=== PATIENT | male | born 1935 | race Hispanic/Latino ===

== ENCOUNTER 2018-09-14 18:59 | Inpatient (IN) | payer OTHER, MEDICARE ==
[~2018-09-14] VITALS: Ht 162.6 cm; Wt 56.0 kg
[2018-09-14 19:50] LABS: BASOPHILS % (AUTO) 0.1 % (0.0-5.0); HEMATOCRIT 34.9 % (42-54); LYMPHOCYTES % (AUTO) 2.7 % (21.0-51.0); MEAN CORPUSCULAR HEMOGLOBIN 33.5 pg (27.0-33.0); MEAN CORPUSCULAR HGB CONC 35.2 g/dL (32.0-36.0); MEAN CORPUSCULAR VOLUME 95.3 fL (79-99); MONOCYTES % (AUTO) 9.6 % (3.0-13.0); NEUTROPHILS % (AUTO) 87.6 % (40.0-77.0); PLATELET COUNT (AUTO) 185 K/uL (130-400); RED BLOOD CELL COUNT(AUTO) 3.66 MIL/uL (4.50-6.20); WHITE BLOOD COUNT (AUTO) 14.2 K/uL (4.8-10.8)
[2018-09-14 20:14] LABS: CREATININE 2.1 mg/dL (0.5-1.5); POTASSIUM 4.3 mmol/L (3.5-5.1)
[2018-09-14 20:19] LABS: ALBUMIN 3.9 g/dL (3.5-5.0); BILIRUBIN,TOTAL 1.1 mg/dL (0.2-1.0); INR 1.03 (0.85-1.15); PARTIAL THROMBOPLASTIN TIME 34.1 SEC (26.3-35.5); PROTHROMBIN TIME 10.8 SEC (9.6-11.6); TOTAL PROTEIN, SERUM 7.7 g/dL (6.0-8.3)
[2018-09-14] MEDS ORDERED: ASPIRIN 81MG TAB.CHEW ONE (21:09)
[2018-09-14] MEDS ORDERED: NITROGLYCERIN 1GM/1 INCH PACKET TD ONE (21:09)
[2018-09-14] MEDS ORDERED: HEPARIN SODIUM 5000UNIT/ML 1ML VIAL ONE (22:06)
[2018-09-14] MEDS ORDERED: HEPARIN 25000 UNITS/250 ML D5W 250 ML IV ONE (22:06)
[2018-09-14 22:25] LABS: APPEARANCE,URINE Clear (CLEAR); BILIRUBIN,URINE Negative (NEGATIVE); COLOR,URINE Yellow (YELLOW); GLUCOSE, URINE (UA) TRACE mg/dL (NEGATIVE); KETONES,URINE Trace mg/dL (NEGATIVE); LEUKOCYTE ESTERASE ,URINE Negative (NEGATIVE); NITRATE,URINE Negative (NEGATIVE); OCCULT BLOOD,URINE Negative (NEGATIVE); PH,URINE 5.5 (5.0-8.0); PROTEIN,URINE POS 2+ mg/dL (NEGATIVE)
--- NOTE | 2018-09-14 22:47 | NUR ---
Received report from ER nurse Matthieu,pt. s/p fall from home admitted for Nonstemi,intial troponin was elevated 1.43 no chest pain and Dr. Cordova was consulted in ER as per report.Pt. is on heparin drip.V/S were atable as per report.
[2018-09-14 23:07] LABS: RBC,URINE 0-1 /HPF (0-1); WBC,URINE 0-1 /HPF (0-1)
[2018-09-14 23:08] LABS: BACTERIA,URINE Few /HPF (None Seen); SQUAMOUS EPITHELIAL CELL,UR 0-2 /HPF (0-2)
--- NOTE | 2018-09-14 23:10 | NUR ---
Received pt. via stretcher from ER on heparin drip infusing @13ml/hr to left forearm,pt. was accompanied by staff and family.Pt. is forgetful and pleasantly confused.Pt. deneis chestpain or any discomfort at this time.
[2018-09-14] MEDS ORDERED: NITROGLYCERIN 0.4 MG SL TAB SL PRN (23:30)
[2018-09-14] MEDS ORDERED: GLUCAGON 1MG KIT 1 MG ML IM PRN (23:30)
[2018-09-14] MEDS ORDERED: ONDANSETRON HCL 4 MG/2 ML VIAL IVP PRN (23:30)
[2018-09-14] MEDS ORDERED: DEXTROSE 50%-WATER 50 ML DISP.SYRIN IV PRN (23:30)
[2018-09-14] MEDS ORDERED: ACETAMINOPHEN 325 MG TAB PO PRN ×2 (23:30)
[2018-09-14 23:44] VITALS: BP 128/71
[2018-09-14] MEDS ORDERED: HEPARIN 25,000 UNITS/250 ML IV PRN (23:45)
[2018-09-15] MEDS ORDERED: ACET-2521 PO (00:26)
[2018-09-15] MEDS ORDERED: GLIP1TAB5 PO (00:26)
[2018-09-15] MEDS ORDERED: CALC-190 PO (00:26)
[2018-09-15] MEDS ORDERED: AEC81 PO (00:26)
[2018-09-15] MEDS ORDERED: MVIT PO (00:26)
[2018-09-15] MEDS ORDERED: EZET10TA26 PO (00:26)
[2018-09-15] MEDS ORDERED: PANT40TA25 PO (00:26)
[2018-09-15] MEDS ORDERED: CLOP75TA32 PO (00:26)
[2018-09-15] MEDS ORDERED: CYAN100010 PO (00:26)
[2018-09-15] MEDS ORDERED: METO50TA18 PO (00:26)
[2018-09-15] MEDS ORDERED: SIMV40TA59 PO (00:26)
[2018-09-15] MEDS ORDERED: LOSA1TAB42 PO (00:26)
[2018-09-15] MEDS ORDERED: TORS10TA18 PO (00:26)
[2018-09-15 03:48] VITALS: BP 142/78
[2018-09-15 04:31] LABS: HEMATOCRIT 31.3 % (42-54); MEAN CORPUSCULAR HEMOGLOBIN 33.1 pg (27.0-33.0); MEAN CORPUSCULAR HGB CONC 35.1 g/dL (32.0-36.0); MEAN CORPUSCULAR VOLUME 94.1 fL (79-99); PLATELET COUNT (AUTO) 184 K/uL (130-400); RED BLOOD CELL COUNT(AUTO) 3.32 MIL/uL (4.50-6.20); RED CELL DISTRIBUTION WIDTH 13.1 % (11.0-15.5); WHITE BLOOD COUNT (AUTO) 14.8 K/uL (4.8-10.8)
[2018-09-15 04:42] LABS: BAND NEUTROPHILS % (MANUAL) 5 % (0-2); LYMPHOCYTES % (MANUAL) 4 % (22-44); MAN.DIFF COMMENT-IMPRESSION MANUAL DIFFERENTIAL; MONOCYTES % (MANUAL) 8 % (2-9); SEGMENTED NEUTROPHILS % 83 % (40-70)
[2018-09-15 04:43] LABS: PLATELET MORPHOLOGY COMMENT SLIGHTLY DECREASED
[2018-09-15 04:50] LABS: INR 1.13 (0.85-1.15); PROTHROMBIN TIME 11.8 SEC (9.6-11.6)
[2018-09-15 05:21] LABS: ALBUMIN 3.3 g/dL (3.5-5.0); BILIRUBIN,TOTAL 1.1 mg/dL (0.2-1.0); CREATININE 1.9 mg/dL (0.5-1.5); MAGNESIUM 1.9 mg/dL (1.80-2.40); PHOSPHORUS 3.2 mg/dL (2.5-4.9); POTASSIUM 3.6 mmol/L (3.5-5.1); TOTAL PROTEIN, SERUM 6.7 g/dL (6.0-8.3)
[2018-09-15 05:27] LABS: TROPONIN I 1.04 ng/mL (0.00-0.06)
[2018-09-15 05:52] LABS: PARTIAL THROMBOPLASTIN TIME > 120.0 SEC (26.3-35.5)
[2018-09-15] MEDS: INSULIN R PO SS1 SQ SCH ×4 (06:31→18:00)
[2018-09-15 07:47] VITALS: BP 142/74
[2018-09-15] MEDS: ASPIRIN 81MG TAB.CHEW PO SCH (08:55)
[2018-09-15] MEDS ORDERED: PANTOPRAZOLE 40 MG/VIAL IVP SCH (09:00)
[2018-09-15 11:01] LABS: TROPONIN I 0.7 ng/mL (0.00-0.06)
[2018-09-15 11:53] VITALS: BP 128/65
--- NOTE | 2018-09-15 11:56 | NUR ---
Pal WRIGHT PA-C, IN ROOM WITH PT. FOR CONSULT. PT.'S DAUGHTER AT BEDSIDE.
--- NOTE | 2018-09-15 12:05 | NUR ---
TO CT SCAN VIA BED ACCOMPANIED BY DANILO MONGE.
--- NOTE | 2018-09-15 12:20 | NUR ---
RETURNED TO ROOM VIA BED, W/O C/O. FAMILY MEMBERS AT BEDSIDE. CALL LIGHT WITHIN REACH.
--- NOTE | 2018-09-15 12:20 | NUR ---
RD Notification Patient NPO at time of screen. RD notification for recent weight loss with good appetite received. Patient PMH CABG, [place], DM; When medically feasible, rec to advance diet as tolerated to goal of 75gm, Heart Healthy diet. RD to monitor PO status. Patient LBM 09/14/18. Patient monitored labs: BUN 39, Cr 1.9, GFR 36, Glu 212, T. Bili 1.1, Alb 3.3. RD to continue to monitor. Please notify RD as nutritional concerns arise. Thank you. Addendum: 09/15/18 at [address] Amended: Links added.
[2018-09-15 16:17] VITALS: BP 134/65
--- NOTE | 2018-09-15 16:35 | NUR ---
NOTIFIED Pal WRIGHT PA-C, RE:REPEAT CT HEAD RESULTS AND PT.'S FAMILY CONCERN RE:NPO STATUS; VERBALIZED UNDERSTANDING AND ORDERS RECEIVED.
--- NOTE | 2018-09-15 17:05 | NUR ---
SITTING UP IN BED, POSITIONED IN HIGH ADAM'S POSITION. ASSISTED WITH DINNER BY FAMILY MEMBERS AT BEDSIDE. PT. DENIES ANY C/O. CALL LIGHT WITHIN REACH.
[2018-09-15 19:29] VITALS: BP 113/69
[2018-09-15] MEDS: METOPROLOL TARTRATE 50 MG TAB PO SCH (20:25)
[2018-09-15] MEDS: SIMVASTATIN 20 MG TABLET PO SCH (20:25)
[2018-09-15] MEDS ORDERED: INSULIN HUMULIN R 100 UNIT/ML 3ML SQ SCH (21:35)
[2018-09-15 23:51] VITALS: BP 136/60
[2018-09-16 03:40] LABS: HEMATOCRIT 30.3 % (42-54); MEAN CORPUSCULAR HEMOGLOBIN 33.3 pg (27.0-33.0); MEAN CORPUSCULAR HGB CONC 34.7 g/dL (32.0-36.0); MEAN CORPUSCULAR VOLUME 95.9 fL (79-99); PLATELET COUNT (AUTO) 162 K/uL (130-400); RED BLOOD CELL COUNT(AUTO) 3.16 MIL/uL (4.50-6.20); RED CELL DISTRIBUTION WIDTH 12.9 % (11.0-15.5); WHITE BLOOD COUNT (AUTO) 11.8 K/uL (4.8-10.8)
[2018-09-16 03:42] LABS: POTASSIUM 3.7 mmol/L (3.5-5.1)
[2018-09-16 03:54] VITALS: BP 147/62
[2018-09-16 04:10] LABS: B-TYPE NATRIURETIC PEPTIDE 218 pg/mL (0-100)
[2018-09-16] MEDS: INSULIN HUMULIN R 100 UNIT/ML 3ML SQ SCH ×4 (05:45→21:00)
--- NOTE | 2018-09-16 06:32 | NUR ---
Pt. is ocassionaly trying to get out of bed but easily redirected,family to bedside.Pt. resting well for the most part of the night,no s/s hypoglycemia.
[2018-09-16 07:00] VITALS: BP 168/82
[2018-09-16] MEDS: CALCIUM 600 + VITAMIN D 400 TABLET PO SCH (08:27)
[2018-09-16] MEDS: ACETAMINOPHEN EXTENDED RELEASE 650 MG TABLET PO SCH (08:28)
[2018-09-16] MEDS: CYANOCOBALAMIN (VITAMIN B-12) 1,000 MCG TABLET PO SCH (08:28)
[2018-09-16] MEDS: EZETIMIBE 10 MG TAB PO SCH (08:28)
[2018-09-16] MEDS: PANTOPRAZOLE SODIUM 40 MG TABLET.DR PO SCH (08:28)
[2018-09-16] MEDS: ASPIRIN 81MG TAB.CHEW PO SCH (08:28)
[2018-09-16] MEDS: ASPIRIN 81 MG EC TAB PO SCH (08:28)
[2018-09-16] MEDS: MULTIVITAMIN TABLET PO SCH (08:28)
[2018-09-16] MEDS: METOPROLOL TARTRATE 50 MG TAB PO SCH (08:29)
[2018-09-16] MEDS: TORSEMIDE 20 MG TAB PO SCH (08:29)
[2018-09-16 11:00] VITALS: BP 141/66
--- NOTE | 2018-09-16 12:00 | NUR ---
DYSPHAGIA EVAL COMPLETED. +S/S OF ASPIRATION WITH THIN LIQUIDS. RECOMMEND REGULAR TEXTURE, NECTAR-THICK LIQUIDS; PILLS WHOLE WITH LIQUIDS. PATIENT INFORMATION: Pt IS AN 83 YEAR OLD MALE REFERRED FOR A BEDSIDE DYSPHAGIA EVALUATION SECONDARY TO COUGHING WITH THIN LIQUIDS. FAMILY AT BEDSIDE AT THE TIME OF THE EVALUATION. Pt COOPERATIVE REQUIRING ASSISTANCE FOR IDENTIFYING INFORMATION. Pt CURRENTLY ADMITTED SECONDARY TO S/P FALL AND NON-STEMI PR. 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 EVALUATION: PT PRESENTS WITH MILD-MODERATE PHARYNGEAL DYSPHAGIA CAUSED BY DELAYED PHARYNGEAL RESPONSE TIME AND DECREASED HYO-LARYNGEAL APPROXIMATION PALPATED DURING THE EVALUATION, RESULTING IN +S/S OF ASPIRATION OF COUGH RESPONSE WITH THIN LIQUIDS (INCONSISTENT). RECOMMENDATION: 1. REGULAR SOLIDS; NECTAR-THICK LIQUIDS; PILLS WHOLE WITH LIQUIDS. 2. COMPENSATORY STRATEGIES; *SEATED AT 90 *SLOW RATE *SMALL BITES AND SIPS *ALTERNATE BITES AND SIPS RISKS AND CONSEQUENCES OF ASPIRATION REVIEWED WITH Pt AND FAMILY, THEY VERBALIZED UNDERSTANDING AND COMPLIANCE WITH RECOMMENDATIONS. G-CODES SWALLOWING: [id number] Addendum: 09/16/18 at 1346 by VERN SANCHEZ [facility] Amended: Links added.
--- NOTE | 2018-09-16 13:50 | NUR ---
DC PLAN VISITED WITH PATIENT AND FAMILY. PATIENT LIVES ALONE. INDEPENDENT ABLE TO PERFORM ADL'S. PATIENT HAS NO DME'S. PROVIDER 4 HOURS A DAY FEELS SAFE TO RETURN HOME. Addendum: 09/16/18 at 1352 by BHARATI FOX RN CM Amended: Links added.
[2018-09-16 16:00] VITALS: BP 146/66
[2018-09-16 19:00] VITALS: BP 146/59
[2018-09-16] MEDS: SIMVASTATIN 20 MG TABLET PO SCH (21:01)
[2018-09-16] MEDS: METOPROLOL TARTRATE 25 MG TAB PO SCH (21:01)
[2018-09-16 23:00] VITALS: BP 142/50
[2018-09-17 03:00] VITALS: BP 131/89
[2018-09-17 05:21] LABS: CREATININE 2.1 mg/dL (0.5-1.5); POTASSIUM 3.1 mmol/L (3.5-5.1)
[2018-09-17 07:00] VITALS: BP 151/70
[2018-09-17] MEDS: INSULIN HUMULIN R 100 UNIT/ML 3ML SQ SCH ×4 (07:03→21:00)
[2018-09-17] MEDS ORDERED: POTASSIUM CHLORIDE 20 MEQ ERTAB PO SCH (08:15)
[2018-09-17] MEDS: ASPIRIN 81 MG EC TAB PO SCH (08:25)
[2018-09-17] MEDS: TORSEMIDE 20 MG TAB PO SCH (08:25)
[2018-09-17] MEDS: EZETIMIBE 10 MG TAB PO SCH (08:25)
[2018-09-17] MEDS: PANTOPRAZOLE SODIUM 40 MG TABLET.DR PO SCH (08:25)
[2018-09-17] MEDS: MULTIVITAMIN TABLET PO SCH (08:25)
[2018-09-17] MEDS: CYANOCOBALAMIN (VITAMIN B-12) 1,000 MCG TABLET PO SCH (08:26)
[2018-09-17] MEDS: CLOPIDOGREL BISULFATE 75 MG TAB PO SCH (08:26)
[2018-09-17] MEDS: ACETAMINOPHEN EXTENDED RELEASE 650 MG TABLET PO SCH (08:26)
[2018-09-17] MEDS: METOPROLOL TARTRATE 25 MG TAB PO SCH ×2 (08:27→21:13)
[2018-09-17] MEDS: CALCIUM 600 + VITAMIN D 400 TABLET PO SCH (08:27)
[2018-09-17] MEDS ORDERED: CLOPIDOGREL BISULFATE 75 MG TAB PO SCH (09:00)
[2018-09-17 11:00] VITALS: BP 158/75
--- NOTE | 2018-09-17 12:01 | NUR ---
SPEECH THERAPY COMPLETED. S: Pt RAISED TO 90 DEGREES IN BED WITH GRANDDAUGHTER AT BEDSIDE. Pt COOPERATIVE. O: Pt CURRENTLY TARGETING SWALLOWING GOALS: *Pt WILL TOLERATE REGULAR, NECTAR-THICK LIQUID DIET: X5 TRIALS WITH NO S/S OF ASPIRATION. *TRIAL OF THIN LIQUIDS X2 WITH THROAT CLEAR PRESENT A: NURSE REPORTS Pt IS TOLERATING CURRENT DIET. GRANDDAUGHTER WAS EDUCATED ON HOW TO REACH NECTAR-THICK LIQUIDS. SHE VERBALIZED UNDERSTANDING AND COMPLIANCE WITH RECOMMENDATIONS. P: RECOMMEND CONTINUED SKILLED SPEECH THERAPY AND CONTINUED DIET OF REGULAR SOLIDS AND NECTAR-THICK LIQUIDS. HARDWARE INSTALLER COORDINATED CARE WITH NURSE RAYMUNDO. Addendum: 09/17/18 at 1205 by VERN SANCHEZ, [facility] Amended: Links added.
--- NOTE | 2018-09-17 13:15 | NUR ---
RD Follow up Patient tolerating 75gm CCD, Heart Healthy diet, NTL with no report of GI distress and PO intake at 100%. Patient LBM 09/16/18. Patient monitored labs: K 3.1, BUN 45, Cr 2.1, GFR 32, Glu 145, Alb 3.3. Patient asked RD for water, however patient with NTL. RD to continue to monitor. Please notify RD as nutritional concerns arise. Thank you. Addendum: 09/17/18 at [address] Amended: Links added.
--- NOTE | 2018-09-17 15:17 | NUR ---
DC PLAN SPOKE TO PATIENT AND FAMILY AT BEDSIDE REGARDS SNF. SAID THEY NEEDED TO TALK TO OTHER DAUGHTER PATO. CALLED PATO NO ANSWER NO CALL BACK. LEFT INFO FOR IN NETWORK SNF. CM WILL CONTINUE TO FOLLOW. SPOKE TO DALTON VILLAGOMEZ SAID PATIENT WILL BE READY FOR DC IN 24 TO 48 HRS. Addendum: 09/17/18 at 1518 by BHARATI FOX RN CM Amended: Links added.
[2018-09-17 16:00] VITALS: BP 155/82
--- NOTE | 2018-09-17 16:59 | NUR ---
SBAR report given to LEAH Triana at 3rd floor. Patient is going to room 307. Family member Christina, daughter notified ([phone]).
[2018-09-17 20:00] VITALS: BP 161/80
[2018-09-17] MEDS: SIMVASTATIN 20 MG TABLET PO SCH (21:13)
[2018-09-18] VITALS (12 sets, daily range): BP systolic 125–174; BP diastolic 59–89
--- NOTE | 2018-09-18 03:01 | NUR ---
fall 219 Patient's bed alarm went off and I the Nurse went to the room as soon as possible but the patient was already on the floor with his buttock with the grandson Dante trying to help him. Grandson Dante said that patient just slid on the floor and that he did not hear the patient hit the floor. Patient and Grandson Dante was educated in the beginning of the shift to not let the patient get up and to call if needed help but in this case the patient nor the family member did not call for help. Batsheva Purvis which is the Nurse Practitioner secondary english teacher for the night was notified about the fall at 0300. She said just to monitor the patient closely. No orders were given. at 224 Director Lm was also notified. Patient is back in bed and no complaints of any pain. Vitals are stable. Will monitor closely
[2018-09-18 05:10] LABS: BASOPHILS % (AUTO) 0.1 % (0.0-5.0); EOSINOPHILS % (AUTO) 0.3 % (0.0-8.0); HEMATOCRIT 30.3 % (42-54); MEAN CORPUSCULAR HEMOGLOBIN 33.3 pg (27.0-33.0); MEAN CORPUSCULAR VOLUME 95.3 fL (79-99); MONOCYTES % (AUTO) 10.1 % (3.0-13.0); NEUTROPHILS % (AUTO) 81.5 % (40.0-77.0); PLATELET COUNT (AUTO) 198 K/uL (130-400); RED BLOOD CELL COUNT(AUTO) 3.18 MIL/uL (4.50-6.20); RED CELL DISTRIBUTION WIDTH 12.6 % (11.0-15.5); WHITE BLOOD COUNT (AUTO) 10.9 K/uL (4.8-10.8)
[2018-09-18 05:28] LABS: CREATININE 1.6 mg/dL (0.5-1.5); POTASSIUM 3.3 mmol/L (3.5-5.1)
[2018-09-18] MEDS: INSULIN HUMULIN R 100 UNIT/ML 3ML SQ SCH ×4 (06:36→21:15)
[2018-09-18] MEDS: TORSEMIDE 20 MG TAB PO SCH (11:16)
[2018-09-18] MEDS: EZETIMIBE 10 MG TAB PO SCH (11:16)
[2018-09-18] MEDS: CYANOCOBALAMIN (VITAMIN B-12) 1,000 MCG TABLET PO SCH (11:17)
[2018-09-18] MEDS: METOPROLOL TARTRATE 25 MG TAB PO SCH ×2 (11:17→21:20)
[2018-09-18] MEDS: ASPIRIN 81 MG EC TAB PO SCH (11:17)
[2018-09-18] MEDS: PANTOPRAZOLE SODIUM 40 MG TABLET.DR PO SCH (11:17)
[2018-09-18] MEDS: MULTIVITAMIN TABLET PO SCH (11:18)
[2018-09-18] MEDS: CALCIUM 600 + VITAMIN D 400 TABLET PO SCH (11:18)
[2018-09-18] MEDS: CLOPIDOGREL BISULFATE 75 MG TAB PO SCH (11:18)
[2018-09-18] MEDS: ACETAMINOPHEN EXTENDED RELEASE 650 MG TABLET PO SCH (11:21)
[2018-09-18] MEDS ORDERED: POTASSIUM CHLORIDE 10% ELIXIR 20 MEQ/15 ML UDCUP PO PRN (15:15)
[2018-09-18] MEDS ORDERED: POTASSIUM CHLORIDE 20MEQ/100ML 100 ML IV PRN (15:15)
[2018-09-18] MEDS ORDERED: LIDOCAINE HCL-MPF 1% 2ML VIAL IVP PRN (15:15)
[2018-09-18] MEDS: HEPARIN SODIUM 5000UNIT/ML 1ML VIAL SQ SCH (17:09)
[2018-09-18] MEDS: POTASSIUM CHLORIDE 20 MEQ ERTAB PO PRN ×3 (19:15→23:59)
[2018-09-18] MEDS: SIMVASTATIN 20 MG TABLET PO SCH (21:19)
[2018-09-19] VITALS: BP 166/75
[2018-09-19 03:30] VITALS: BP 165/83
[2018-09-19] MEDS: HEPARIN SODIUM 5000UNIT/ML 1ML VIAL SQ SCH ×2 (04:00→17:26)
[2018-09-19 05:36] LABS: HEMATOCRIT 31.8 % (42-54); MEAN CORPUSCULAR HEMOGLOBIN 33.2 pg (27.0-33.0); MEAN CORPUSCULAR HGB CONC 34.7 g/dL (32.0-36.0); MEAN CORPUSCULAR VOLUME 95.8 fL (79-99); PLATELET COUNT (AUTO) 209 K/uL (130-400); RED BLOOD CELL COUNT(AUTO) 3.32 MIL/uL (4.50-6.20); RED CELL DISTRIBUTION WIDTH 13.1 % (11.0-15.5); WHITE BLOOD COUNT (AUTO) 9.4 K/uL (4.8-10.8)
[2018-09-19 05:43] LABS: CREATININE 1.7 mg/dL (0.5-1.5); MAGNESIUM 1.9 mg/dL (1.80-2.40); POTASSIUM 4.2 mmol/L (3.5-5.1)
[2018-09-19] MEDS: INSULIN HUMULIN R 100 UNIT/ML 3ML SQ SCH ×3 (06:37→17:26)
[2018-09-19 07:55] VITALS: BP 171/86
[2018-09-19] MEDS: PANTOPRAZOLE SODIUM 40 MG TABLET.DR PO SCH (09:25)
[2018-09-19] MEDS: CLOPIDOGREL BISULFATE 75 MG TAB PO SCH (09:25)
[2018-09-19] MEDS: TORSEMIDE 20 MG TAB PO SCH (09:25)
[2018-09-19] MEDS: MULTIVITAMIN TABLET PO SCH (09:25)
[2018-09-19] MEDS: EZETIMIBE 10 MG TAB PO SCH (09:25)
[2018-09-19] MEDS: ACETAMINOPHEN EXTENDED RELEASE 650 MG TABLET PO SCH (09:25)
[2018-09-19] MEDS: ASPIRIN 81 MG EC TAB PO SCH (09:25)
[2018-09-19] MEDS: CYANOCOBALAMIN (VITAMIN B-12) 1,000 MCG TABLET PO SCH (09:26)
[2018-09-19] MEDS: METOPROLOL TARTRATE 25 MG TAB PO SCH (09:26)
[2018-09-19] MEDS: CALCIUM 600 + VITAMIN D 400 TABLET PO SCH (09:26)
--- NOTE | 2018-09-19 09:44 | NUR ---
DCP UPDATE/RETAMA: F/U w Shanthi this am regarding status of referral. States pt has been accepted and ins auth has been obtained. Bed avail today if pt is medically cleared for DC. Primary nurse updated.
[2018-09-19 12:00] VITALS: BP 156/71
[2018-09-19 16:00] VITALS: BP 151/71
--- NOTE | 2018-09-19 18:06 | NUR ---
Report called to Adam Bullard at [facility], All questions and concerns answered, pending pt. garbage pick up man.
== END 2018-09-19 18:50 | DRG 281 ==
LOC: EDH 18:59 → EDHIP 21:30 → 2AH 23:11 → 3BH 09-17 18:52
PROVIDERS: ADMIT Internal Medicine Pulmonary Disease; ATTEND Internal Medicine Pulmonary Disease
DX: I21.4 Non-ST elevation (NSTEMI) myocardial infarction (principal); I69.351 Hemiplegia and hemiparesis following cerebral infarction affecting right dominant side; G45.9 Transient cerebral ischemic attack, unspecified; S50.01XA Contusion of right elbow, initial encounter; E11.22 Type 2 diabetes mellitus with diabetic chronic kidney disease; I12.9 Hypertensive chronic kidney disease with stage 1 through stage 4 chronic kidney disease, or unspecified chronic kidney disease; E78.5 Hyperlipidemia, unspecified; I25.10 Atherosclerotic heart disease of native coronary artery without angina pectoris; J44.9 Chronic obstructive pulmonary disease, unspecified; K21.9 Gastro-esophageal reflux disease without esophagitis; M19.90 Unspecified osteoarthritis, unspecified site; I45.10 Unspecified right bundle-branch block; N18.9 Chronic kidney disease, unspecified; R29.810 Facial weakness; S41.111A Laceration without foreign body of right upper arm, initial encounter; W18.30XA Fall on same level, unspecified, initial encounter; Y93.89 Activity, other specified; Y92.098 Other place in other non-institutional residence as the place of occurrence of the external cause; Y99.8 Other external cause status; Z79.02 Long term (current) use of antithrombotics/antiplatelets; Z79.82 Long term (current) use of aspirin; Z79.84 Long term (current) use of oral hypoglycemic drugs; Z95.1 Presence of aortocoronary bypass graft
CPT/HCPCS: 36415; 70450; 70551; 71045; 72125; 73080; 80048; 80053; 81001; 82550; 82948; 83735; 83874; 83880; 84100; 84484; 85025; 85027; 85610; 85730; 92507; 92610; 93005; 93306; 93880; 97039; 99291; C9113; G0378; J1644; J1815